=== PATIENT | female | born 1955 | race Caucasian/White ===

== ENCOUNTER → 2016-11-06 | Outpatient (CLI) | payer BC ==
--- NOTE | ~2016-11-06 | EKG ---
PATIENT: CASPER MENJIVAR UNIT #: [id number] Ventricular Rate: 55 BPM Atrial Rate: 55 BPM P-R Interval: 158 ms QRS Duration: 78 ms Q-T Interval: 406 ms QTC Calculation(Bezet): 388 ms P [place]: 51 degrees Calculated R [place]: 37 degrees Calculated T [place]: 57 degrees Diagnosis Line: Sinus bradycardia Diagnosis Line: Otherwise normal ECG Diagnosis Line: No previous ECGs available Diagnosis Line: Confirmed by KAYLA CHESTER MD ([id number]) on Diagnosis Line: 11/14/2016 8:28:08 AM INTERPRETING MD: HENRIK DELUNA
[2016-11-06 09:37] LABS: CALCIUM SERUM 8.9 mg/dL (8.4-10.2); CREATININE SERUM 0.8 mg/dL (0.6-1.4); GLOM FILT RATE Estimated 80.8 mL/min (>60); POTASSIUM 3.9 mmol/L (3.5-5.1)
[2016-11-06 10:23] LABS: THYROID STIMULATING HORMONE 5.86 uIU/ml (0.34-5.60)
[2016-11-06 10:26] LABS: BASOPHIL% 0.5 % (0-2.5); EOSINOPHIL# 0.2 X10e3 (0-0.7); EOSINOPHIL% 4.1 % (0.0-7.0); HEMATOCRIT 41.9 % (35.0-45.0); HEMOGLOBIN 14.1 gm/dL (12.0-16.0); LYMPHOCYTE% 24.8 % (17.0-45.0); MEAN CELL VOLUME 91.3 FL (83-96); MEAN CORPUSCULAR HEMOGLOBIN 30.7 PG (28-34); MEAN CORPUSCULAR HGB CONC 33.7 g/dL (30-36); MEAN PLATELET VOLUME 8.7 FL (6.5-11.5); MONOCYTE# 0.5 X10e3 (0-1.0); MONOCYTE% 12.3 % (3.0-12.0); NEUTROPHIL# 2.2 X10e3 (1.5-7.1); NEUTROPHIL% 58.3 % (40-75); PLATELET COUNT 239 X10e3 (140-420); RED BLOOD COUNT 4.59 X10e (3.90-5.30); RED CELL DISTRIBUTION WIDTH 14.2 % (11.0-15.5); WHITE BLOOD COUNT 3.8 X10e3 (4.0-10.5)
[2016-11-06 10:38] LABS: DIFF IND NO
[2016-11-06 15:21] LABS: FREE T3 3.2 pg/mL (2.5-3.9)
[2016-11-06 15:22] LABS: FREE THYROXIN (T4) 0.41 ng/dL (0.58-1.64)
[2016-11-09 00:30] LABS: CALCIUM (PTHINTACT) 9.5 mg/dL (8.6-10.4)
== END | disposition home or self-care (01) ==
LOC: SEKG 08:58
PROVIDERS: Specialist
DX: E04.2 Nontoxic multinodular goiter (principal)
CPT/HCPCS: 36415; 80048; 82310; 82652; 83970; 84439; 84443; 84481; 85025; 93005